=== PATIENT | male | born 1995 ===

== ENCOUNTER 2018-09-29 22:37 | Emergency (ER) | payer MEDICAID ==
[2018-09-29 22:50] VITALS: BP 146/82; PULSE 50; RESP 18; TEMP 98.2; O2SAT 100
--- NOTE | 2018-09-29 23:29 | ED PDOC ---
Upper Extremity Pain/Injury Time Seen by Provider: 09/29/18 23:10 Chief Complaint (Nursing): Finger,Hand,&Wrist History Per: Patient History/Exam Limitations: no limitations Onset/Duration Of Symptoms: Days Current Symptoms Are (Timing): Still Present Additional Complaint(s): 23 yo healthy M right hand dominant, presents with R hand pain from thumb area to wrist for 5 days after playing goalie during soccer. He reports he is not sure how he injured it, but had pain afterwards. he has been taking Ibuprofen with mild relief, last dose 22:00 today. Denies any other injury or previous injury to hand. Denies numbness or tingling, decrease motor or sensation PMD: Dr Daksha Wilson Past Medical History Reviewed: Historical Data, Nursing Documentation, Vital Signs Vital Signs: Last Vital Signs Temp 98.2 F 09/29/18 22:46 Pulse 50 L 09/29/18 22:46 Resp 18 09/29/18 22:46 BP 146/82 09/29/18 22:46 Pulse Ox 100 09/29/18 22:46 - Medical History PMH: No Chronic Diseases - Surgical History Surgical History: No Surg Hx - Family History Family History: States: Unknown Family Hx - Home Medications Home Medications: Ambulatory Orders Medication Instructions Recorded Ibuprofen [Motrin Tab] 600 mg PO Q6 PRN #20 tab 09/30/18 - Allergies Allergies/Adverse Reactions: Allergies Allergy/AdvReac Type Severity Reaction Status Date / Time No Known Allergies Allergy Verified 09/29/18 22:46 Review of Systems Constitutional: Negative for: Fever Musculoskeletal: Positive for: Hand Pain Physical Exam - Reviewed Nursing Documentation Reviewed: Yes - Physical Exam Comments: GENERALIZED APPEARANCE: Patient is awake, alert, oriented x3 in no acute distress. SKIN: Warm, dry; (-) cyanosis. 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 NEUROLOGIC: (+) distal sensation. - ECG O2 Sat by Pulse Oximetry: 100 Medical Decision Making Medical Decision Makin:10 initial eval 23 yo M, right hand pain -- xray hand -- pt tooks Ibuprofen 1hour [employer], no pain meds at this time -- re eval 00:13 xray reviewed by me no acute fracture or dislocation, small seasmoid bone of 1st digit due to snuffbox tenderness will do thumb spica and ortho follow up after splint applied pt pulses and sensation intact discussed results, diagnosis, treatment, return precautions and f/u with pt who is understadning, in agreement and stable for dc Disposition - Clinical Impression Clinical Impression: Hand injury, Sprain of hand, thumb, right - Patient ED Disposition Is Patient to be Admitted: No Counseled Patient/Family Regarding: Studies Performed, Diagnosis, Need For Followup, Rx Given - Disposition Referrals: [facility] [place] [Outside] Karla Ellis MD [Medical Doctor] - Erickson Wilson MD [Medical Doctor] - Disposition: Routine/Home Disposition Time: 00:15 Condition: STABLE Additional Instructions: return to ED for new or worsening symptoms, fever>100.4, numbness or tingling, changes in skin color. Follow up with your primary doctor or orthopedist as listed in 3-5 days. Keep splint on, clean and dry. Rest, ice and elevate. take ibuprofen as needed for pain. Prescriptions: Ibuprofen [Motrin Tab] 600 mg PO Q6 PRN #20 tab PRN Reason: Pain, Moderate (4-7) Instructions: Finger Sprain (DC), Hand Pain (DC), Jammed Finger (DC) Forms: [employer] (Spanish), [facility] ED School/Work Excuse Print Language: M[place]GR[place] - POA Present On Arrival: None
--- NOTE | 2018-09-30 08:35 | RAD ---
Date of service: 09/29/2018 PROCEDURE: Right Thumb radiographs. HISTORY: injury pain COMPARISON: None. TECHNIQUE: AP radiograph of the right hand, as well as spot oblique and lateral images of thumb were obtained. 3 views obtained. FINDINGS: RIGHT THUMB: Normal right thumb, without fracture or focal lesion. Remainder of the right hand (as seen on the AP view) grossly unremarkable. JOINTS: Normal. SOFT TISSUES: Normal. OTHER FINDINGS: None. IMPRESSION: Normal right thumb radiographs.
== END 2018-09-30 00:50 | disposition home or self-care (01) ==
LOC: H.ER 22:37
DX: S63.601A Unspecified sprain of right thumb, initial encounter (principal); X50.9XXA Other and unspecified overexertion or strenuous movements or postures, initial encounter; Y92.322 Soccer field as the place of occurrence of the external cause